=== PATIENT | male | born 1995 | race Two or more races ===

== ENCOUNTER 2018-10-12 10:09 | Day surgery (SDC) | payer OTHER ==
[2018-10-11 10:17] VITALS: BMI 32.8
[2018-10-12] MEDS ORDERED: PROPOFOL 20 ML ONE (11:04)
[2018-10-12] MEDS ORDERED: BUPIVACAINE HCL 0.25% 125 MG/50 ML VIAL ONE (11:12)
[2018-10-12] MEDS ORDERED: methylPREDNISolone ACET (DEPO) 40 MG/1 ML VIAL ONE (11:12)
[2018-10-12] MEDS ORDERED: MIDAZOLAM HCL 2 MG/2 ML SINGLE DOSE VIAL ONE (12:08)
[2018-10-12] MEDS ORDERED: DEXAMETHASONE SOD PHOSPHATE 4 MG/1 ML VIAL ONE (12:08)
[2018-10-12] MEDS ORDERED: ONDANSETRON 4 MG/2 ML VIAL ONE (12:08)
[2018-10-12] MEDS ORDERED: ceFAZolin SODIUM 1 GM VIAL ONE (12:27)
--- NOTE | 2018-10-12 13:26 | PN ---
Progress Note (short form) - Note Progress Note: 22M s/p SALK POD #0. -Pain control: Percocet & Duexis ordered. -WBAT LLE. -f/u post-op trial of void. -Diet as tolerated. -Keep dressing clean & dry; d/c on Monday & place waterproof Band-Aids over incision sites. -Cane vs crutches. -f/u [facility] [place] office Monday10/19/2018; call for appointment; . Javad Heller MD (Orthopaedic Surgery).
--- NOTE | 2018-10-12 13:28 | OP ---
Operative Note - Note: Operative Date: 10/12/18 Pre-Operative Diagnosis: Discoid meniscus left knee Operation: Surgical arthoscopy left knee Findings: Tourniquet Pressure: 250mmHg. Tourniquet Time: 20 minutes. Surgeon: Javad Heller Heating And Ventilation Engineer: Jani Heller Anesthesiologist/FLARE WORKER: Jose Angel Rivas Anesthesia: General Estimated Blood Loss (mls): 0 Fluid Volume Replaced (mls): 500 (Crystalloid) Operative Report Dictated: Yes
[2018-10-12] MEDS ORDERED: KETOROLAC TROMETHAMINE 30 MG/1 ML VIAL ONE (14:03)
[2018-10-12] MEDS ORDERED: oxyCODONE HCL 5 MG TABLET PO PRN ×2 (15:10)
[2018-10-12] MEDS ORDERED: ONDANSETRON 4 MG/2 ML VIAL IVPUSH PRN (15:10)
[2018-10-12] MEDS ORDERED: KETOROLAC TROMETHAMINE 30 MG/1 ML VIAL IVPUSH ONE (15:11)
[2018-10-12] MEDS ORDERED: LACTATED RINGERS SOLUTION 1,000 ML IV SCH (15:15)
[2018-10-12 16:01] VITALS: BP 134/78; PULSE 66; TEMP 98.1
--- NOTE | 2018-10-13 08:06 | OP ---
DATE OF OPERATION: 10/12/2018 SURGEON: Javad Heller MD PROFESSIONAL ARCHITECT: Jani Heller MD PREOPERATIVE DIAGNOSIS: Meniscal tear, internal derangement of the left knee. POSTOPERATIVE DIAGNOSIS: Normal left knee with discoid lateral meniscus. OPERATION PERFORMED: Arthroscopy and arthroscopic lavage (diagnostic). ANESTHESIA: Conscious sedation with spinal anesthesia. OPERATION IN DETAIL: This patient was correctly identified, brought into the operating room. Left lower extremity was prepped, draped in the routine manner with Betadine scrub solution, wiped with alcohol, and DuraPrep applied. Time-out was called. Imaging was available for intraoperative evaluation. With the patient in the supine position, leg-white utilized, a standard anterolateral approach was utilized in order to gain access to the knee. The arthroscopic findings were of normal synovium, normal suprapatellar pouch. The medial joint compartment was pristine. The patellofemoral articulation that is part of the retropatellar surface and trochlear groove were normal, and the lateral joint line, joint surface, and joint compartment was pristine with no tears, flap tears, or any internal derangement features to be noted. What was noted on the lateral side was a classical discoid meniscus. This was left well alone. The tissues were lavaged thoroughly and the knee washed out. Skin was closed with 3-0 nylon and Marcaine sterilely excluding the joint for postoperative pain. No complications. Javad Heller MD [id number]
== END 2018-10-12 16:01 | disposition home or self-care (01) ==
LOC: FASU 10:09
PROVIDERS: ATTEND Orthopaedic Surgery Orthopaedic Surgery of the Spine
PROC: 0SJD4ZZ Inspection of Left Knee Joint, Percutaneous Endoscopic Approach (ICD-10-PCS; principal; 2018-10-12 12:54)
DX: Q68.6 Discoid meniscus (principal)
CPT/HCPCS: 94760